=== PATIENT | male | born 1975 | race Caucasian/White ===

== ENCOUNTER 2023-10-08 15:31 | Emergency (ER) | payer OTHER ==
[~2023-10-08] VITALS: Ht 165.1 cm; Wt 75.0 kg
[2023-10-08 16:00] VITALS: BP 142/83; PULSE 60; RESP 16; TEMP 98.3
[2023-10-08] MEDS ORDERED: HYDR30CR39 TP (18:40)
[2023-10-08] MEDS ORDERED: DIPH50 PO (18:40)
== END 2023-10-08 18:51 | disposition home or self-care (01) ==
LOC: EMS 15:55
DX: L20.89 Other atopic dermatitis (principal); L50.9 Urticaria, unspecified
CPT/HCPCS: 99282; Z7502